=== PATIENT | female | born 1960 | race African-American/Black ===

== ENCOUNTER 2016-11-22 04:35 | Emergency (ER) | payer OTHER ==
[~2016-11-22] VITALS: Ht 180.3 cm; Wt 63.6 kg
[~2016-11-22 04:35] MED LIST: ABAC1TAB3 PO; DARU400T PO; IBUP100O11 PO; LITH150C PO; RITO100C PO
[2016-11-22] MEDS ORDERED: SUMA25TA9 PO (04:43)
[2016-11-22] MEDS ORDERED: KETOROLAC TROMETHAMINE 30 MG/ML VIAL IVP ONE (05:00)
[2016-11-22] MEDS ORDERED: SODIUM CHLORIDE 0.9% 1,000 ML IV ONE (05:00)
[2016-11-22] MEDS ORDERED: METOCLOPRAMIDE HCL 5 MG/ML 2 ML VIAL IVP ONE (05:00)
[2016-11-22 06:57] LABS: APPEARANCE,URINE CLEAR (CLEAR); GLUCOSE, URINE (UA) NEGATIVE (NEGATIVE); KETONES,URINE NEGATIVE (NEGATIVE); LEUKOCYTE ESTERASE ,URINE NEGATIVE (NEGATIVE); OCCULT BLOOD,URINE MODERATE (NEGATIVE); PH,URINE 6.5 (5.0-8.0); PROTEIN,URINE NEGATIVE (NEGATIVE)
[2016-11-22 06:58] LABS: ADD UA MICROSCOPIC YES
[2016-11-22 07:04] LABS: SQUAMOUS EPITHELIAL CELL,UR Few /LPF (None Seen); WBC,URINE 0-2 /HPF (0-5)
[2016-11-22 08:33] VITALS: BP 128/69
== END 2016-11-22 08:50 | disposition home or self-care (01) ==
LOC: EMS 04:36
DX: G43.909 Migraine, unspecified, not intractable, without status migrainosus (principal)
CPT/HCPCS: 70450; 80307; 81001; 96361; 96374; 96375; 99285; J1885; J2765; J7030

== ENCOUNTER 2017-02-10 03:31 | Emergency (ER) | payer OTHER ==
[~2017-02-10] VITALS: Ht 177.8 cm; Wt 59.1 kg
[~2017-02-10 03:31] MED LIST changes: -IBUP100O11 PO; -LITH150C PO; +SUMA25TA9 PO
[2017-02-10] MEDS ORDERED: PROMETHAZINE HCL 50 MG/ML VIAL IM ONE (05:15)
[2017-02-10] MEDS ORDERED: MORPHINE SULFATE 10 MG/ML SYRINGE IM ONE (05:15)
[2017-02-10] MEDS ORDERED: DEXAMETHASONE SOD PHOS 4 MG/ML 5 ML VIAL IM ONE (05:15)
[2017-02-10 06:41] VITALS: BP 135/88
== END 2017-02-10 07:26 | disposition home or self-care (01) ==
LOC: EMS 03:32
DX: G43.909 Migraine, unspecified, not intractable, without status migrainosus (principal); F20.9 Schizophrenia, unspecified
CPT/HCPCS: 96372; 99284; J1100; J2270; J2550

== ENCOUNTER 2017-03-22 13:13 | Emergency (ER) | payer OTHER ==
[~2017-03-22] VITALS: Ht 180.3 cm; Wt 56.8 kg
[2017-03-22] MEDS ORDERED: ONDANSETRON HCL 4 MG/2 ML VIAL IVP ONE (13:45)
[2017-03-22] MEDS ORDERED: KETOROLAC TROMETHAMINE 30 MG/ML VIAL IVP ONE (13:45)
[2017-03-22] MEDS ORDERED: SUMAtriptan SUCCINATE 6 MG/0.5 ML VIAL SQ ONE (13:45)
[2017-03-22 15:07] VITALS: BP 156/96
== END 2017-03-22 15:38 | disposition home or self-care (01) ==
LOC: EMS 13:14
DX: G43.909 Migraine, unspecified, not intractable, without status migrainosus (principal); F20.9 Schizophrenia, unspecified; F10.20 Alcohol dependence, uncomplicated
CPT/HCPCS: 96372; 96374; 96375; 99284; J1885; J2405; J3030

== ENCOUNTER 2017-03-23 06:13 | Emergency (ER) | payer OTHER ==
[~2017-03-23] VITALS: Ht 167.6 cm; Wt 61.0 kg
[2017-03-23] MEDS ORDERED: METOCLOPRAMIDE HCL 5 MG/ML 2 ML VIAL IVP ONE (07:15)
[2017-03-23] MEDS ORDERED: KETOROLAC TROMETHAMINE 30 MG/ML VIAL IVP ONE (07:15)
[2017-03-23] MEDS ORDERED: SODIUM CHLORIDE 0.9% 1,000 ML IV ONE (07:15)
[2017-03-23] MEDS ORDERED: SUMAtriptan SUCCINATE 6 MG/0.5 ML VIAL SQ ONE (07:15)
[2017-03-23 07:43] LABS: BASOPHILS # (AUTO) 0.03 K/uL (0.00-0.20); BASOPHILS % (AUTO) 0.8 % (0.0-2.0); EOSINOPHILS # (AUTO) 0.05 K/uL (0.00-0.70); EOSINOPHILS % (AUTO) 1.15 % (1.0-6.0); HEMATOCRIT 35.1 % (36-46); HEMOGLOBIN 11.6 g/dL (12.0-16.0); LYMPHOCYTES # (AUTO) 0.9 K/uL (1.0-4.8); LYMPHOCYTES % (AUTO) 21.5 % (22.0-44.0); MEAN CORPUSCULAR HEMOGLOBIN 28.1 pg (26.0-34.0); MEAN CORPUSCULAR VOLUME 85 fL (80-100); MONOCYTES # (AUTO) 0.5 K/uL (0.1-1.0); NEUTROPHILS # (AUTO) 2.7 K/uL (1.8-7.7); NEUTROPHILS % (AUTO) 64.6 % (40.0-70.0); PLATELET COUNT (AUTO) 185 K/uL (150-450); RED BLOOD CELL COUNT(AUTO) 4.13 MIL/uL (4.00-5.20); RED CELL DISTRIBUTION WIDTH 14.8 % (11.5-14.5); WHITE BLOOD COUNT (AUTO) 4.2 K/uL (4.5-11.0)
[2017-03-23 08:09] LABS: ANION GAP 6 mmol/L (8-16); CALCIUM, TOTAL 9.2 mg/dL (8.8-10.5); CARBON DIOXIDE 29 mmol/L (22-29); CHLORIDE 103 mmol/L (98-107); CREATININE 1.07 mg/dL (0.60-1.30); GLOMERULAR FILTR. RATE CALC > 60 mL/min (>60); POTASSIUM 3.1 mmol/L (3.5-5.1); SODIUM SERUM 138 mmol/L (136-145); UREA NITROGEN, BLOOD 25 mg/dL (7-18)
[2017-03-23 08:14] LABS: ALANINE AMINOTRANSFERASE 24 U/L (12-78); ALBUMIN 3.4 g/dL (3.4-5.0); ASPARTATE AMINOTRANSFERASE 27 U/L (15-37); BILIRUBIN,TOTAL 0.4 mg/dL (0.1-1.0); TOTAL PROTEIN, SERUM 8.5 g/dL (6.4-8.2)
[2017-03-23] MEDS ORDERED: POTASSIUM CHLORIDE 20 MEQ ER TABLET PO ONE (09:00)
[2017-03-23 10:47] LABS: APPEARANCE,URINE CLEAR (CLEAR); GLUCOSE, URINE (UA) NEGATIVE (NEGATIVE); KETONES,URINE NEGATIVE (NEGATIVE); LEUKOCYTE ESTERASE ,URINE NEGATIVE (NEGATIVE); PH,URINE 5.5 (5.0-8.0); PROTEIN,URINE NEGATIVE (NEGATIVE)
[2017-03-23 10:57] LABS: ADD UA MICROSCOPIC YES; OCCULT BLOOD,URINE SMALL (NEGATIVE)
[2017-03-23 10:58] LABS: RBC,URINE 0-2 /HPF (0-2); WBC,URINE None Seen /HPF (0-5)
[2017-03-23 12:05] VITALS: BP 130/81
== END 2017-03-23 12:21 | disposition home or self-care (01) ==
LOC: EMS 06:14
DX: G43.909 Migraine, unspecified, not intractable, without status migrainosus (principal); E86.0 Dehydration; F10.20 Alcohol dependence, uncomplicated; F15.10 Other stimulant abuse, uncomplicated
CPT/HCPCS: 36415; 80053; 80307; 81001; 85025; 96361; 96372; 96374; 96375; 99284; J1885; J2765; J3030; J7030

== ENCOUNTER 2017-03-24 07:49 | Emergency (ER) | payer OTHER ==
[~2017-03-24] VITALS: Ht 177.8 cm; Wt 47.7 kg
[2017-03-24] MEDS ORDERED: SUMAtriptan SUCCINATE 6 MG/0.5 ML VIAL SQ ONE (08:30)
[2017-03-24 09:30] VITALS: BP 128/82
== END 2017-03-24 09:31 | disposition home or self-care (01) ==
LOC: EMS 07:51
DX: G43.909 Migraine, unspecified, not intractable, without status migrainosus (principal)
CPT/HCPCS: 96372; 99283; J3030

== ENCOUNTER 2017-09-01 20:07 | Emergency (ER) | payer OTHER ==
[~2017-09-01] VITALS: Ht 172.7 cm; Wt 59.1 kg
[2017-09-02 01:43] LABS: HEMATOCRIT 37.7 % (36-46); HEMOGLOBIN 12.5 g/dL (12.0-16.0); MEAN CORPUSCULAR HEMOGLOBIN 27.3 pg (26.0-34.0); MEAN CORPUSCULAR VOLUME 83 fL (80-100); PLATELET COUNT (AUTO) 258 K/uL (150-450); RED BLOOD CELL COUNT(AUTO) 4.57 MIL/uL (4.00-5.20); RED CELL DISTRIBUTION WIDTH 17.1 % (11.5-14.5)
[2017-09-02] MEDS ORDERED: SODIUM CHLORIDE 0.9% 1,000 ML IV ONE (01:45)
[2017-09-02 01:53] LABS: ANION GAP 2 mmol/L (8-16); CALCIUM, TOTAL 9.5 mg/dL (8.8-10.5); CARBON DIOXIDE 28 mmol/L (22-29); CHLORIDE 103 mmol/L (98-107); CREATININE 0.88 mg/dL (0.60-1.30); GLOMERULAR FILTR. RATE CALC > 60 mL/min (>60); GLUCOSE,RANDOM 133 mg/dL (70-110); POTASSIUM 3.5 mmol/L (3.5-5.1); SODIUM SERUM 133 mmol/L (136-145); UREA NITROGEN, BLOOD 16 mg/dL (7-18)
[2017-09-02 01:54] LABS: INFLUENZA TYPE A NEGATIVE FOR TYPE A (NEGATIVE); INFLUENZA TYPE B NEGATIVE FOR TYPE B (NEGATIVE)
[2017-09-02 01:59] LABS: ALANINE AMINOTRANSFERASE 21 U/L (12-78); ALBUMIN 3.5 g/dL (3.4-5.0); ALKALINE PHOSPHATASE 88 U/L (46-116); ASPARTATE AMINOTRANSFERASE 25 U/L (15-37); BILIRUBIN,TOTAL 0.4 mg/dL (0.1-1.0); TOTAL PROTEIN, SERUM 9.9 g/dL (6.4-8.2)
[2017-09-02 02:02] LABS: LACTIC ACID 0.7 mmol/L (0.4-2.0)
[2017-09-02 02:19] LABS: LYMPHOCYTES % (MANUAL) 34 % (22-44); MONOCYTES % (MANUAL) 5 % (2-9); SEGMENTED NEUTROPHILS % 61 % (40-70)
[2017-09-02] MEDS ORDERED: DiphenhydrAMINE HCL 50 MG/ML VIAL IVP ONE (02:30)
[2017-09-02] MEDS ORDERED: METOCLOPRAMIDE HCL 5 MG/ML 2 ML VIAL IVP ONE (02:30)
[2017-09-02] MEDS ORDERED: KETOROLAC TROMETHAMINE 30 MG/ML VIAL IVP ONE (02:30)
[2017-09-02 04:45] VITALS: BP 148/98
== END 2017-09-02 05:32 | disposition home or self-care (01) ==
LOC: EMS 20:08
DX: G43.909 Migraine, unspecified, not intractable, without status migrainosus (principal); F19.90 Other psychoactive substance use, unspecified, uncomplicated
CPT/HCPCS: 36415; 70450; 80053; 83605; 85007; 85027; 87804; 96361; 96374; 96375; 99285; J1200; J1885; J2765; J7030

== ENCOUNTER 2018-02-25 19:19 | Emergency (ER) | payer OTHER ==
[~2018-02-25] VITALS: Ht 177.8 cm; Wt 79.5 kg
[2018-02-25 22:45] VITALS: BP 140/82
== END 2018-02-25 23:23 | disposition home or self-care (01) ==
LOC: EMS 19:20
DX: J44.0 Chronic obstructive pulmonary disease with (acute) lower respiratory infection (principal); J18.9 Pneumonia, unspecified organism; F15.10 Other stimulant abuse, uncomplicated; F20.9 Schizophrenia, unspecified; Z79.899 Other long term (current) drug therapy
CPT/HCPCS: 71046; 99284

== ENCOUNTER 2018-06-16 15:24 | Emergency (ER) | payer OTHER | END 2018-06-16 16:11 | disposition left against medical advice (07) | LOC: EMS 15:25 | DX: R53.1 Weakness (principal); F20.9 Schizophrenia, unspecified; F19.90 Other psychoactive substance use, unspecified, uncomplicated | CPT/HCPCS: 99283 ==

== ENCOUNTER 2018-12-30 12:29 | Emergency (ER) | payer OTHER ==
[~2018-12-30] VITALS: Ht 177.8 cm; Wt 63.0 kg
[2018-12-30] MEDS ORDERED: KETOROLAC TROMETHAMINE 30 MG/ML VIAL IVP ONE (13:15)
[2018-12-30] MEDS ORDERED: SODIUM CHLORIDE 0.9% 1,000 ML IV ONE (13:15)
[2018-12-30 13:23] LABS: BASOPHILS % (AUTO) 0.9 % (0.0-2.0); EOSINOPHILS % (AUTO) 0.3 % (1.0-6.0); HEMATOCRIT 44.1 % (36-46); HEMOGLOBIN 14.5 g/dL (12.0-16.0); LYMPHOCYTES # (AUTO) 0.8 K/uL (1.0-4.8); LYMPHOCYTES % (AUTO) 19.2 % (22.0-44.0); MEAN CORPUSCULAR HEMOGLOBIN 28.8 pg (26.0-34.0); MEAN CORPUSCULAR HGB CONC 32.9 G/dL (31.0-37.0); MEAN CORPUSCULAR VOLUME 88 fL (80-100); MONOCYTES # (AUTO) 0.5 K/uL (0.1-1.0); MONOCYTES % (AUTO) 12.5 % (2.0-9.0); NEUTROPHILS # (AUTO) 2.9 K/uL (1.8-7.7); NEUTROPHILS % (AUTO) 67.1 % (40.0-70.0); PLATELET COUNT (AUTO) 302 K/uL (150-450); RED BLOOD CELL COUNT(AUTO) 5.04 MIL/uL (4.00-5.20); RED CELL DISTRIBUTION WIDTH 13.5 % (11.5-14.5)
[2018-12-30 14:02] LABS: ANION GAP 14 mmol/L (8-16); CALCIUM, TOTAL 11.1 mg/dL (8.8-10.5); CARBON DIOXIDE 23 mmol/L (22-29); CHLORIDE 96 mmol/L (98-107); CREATININE 1.84 mg/dL (0.60-1.30); GLOMERULAR FILTR. RATE CALC 34 mL/min (>60); GLUCOSE,RANDOM 109 mg/dL (70-110); SODIUM SERUM 133 mmol/L (136-145); UREA NITROGEN, BLOOD 33 mg/dL (7-18)
[2018-12-30 14:21] LABS: ALANINE AMINOTRANSFERASE 20 U/L (12-78); ALBUMIN 4.6 g/dL (3.4-5.0); ALKALINE PHOSPHATASE 105 U/L (46-116); ASPARTATE AMINOTRANSFERASE 37 U/L (15-37); BILIRUBIN,TOTAL 0.8 mg/dL (0.1-1.0); PHOSPHORUS 5.6 mg/dL (2.5-4.9); TOTAL PROTEIN, SERUM 10.7 g/dL (6.4-8.2)
[2018-12-30 15:30] VITALS: BP 114/68
== END 2018-12-30 15:31 | disposition home or self-care (01) ==
LOC: EMS 12:29
DX: R25.2 Cramp and spasm (principal); N28.9 Disorder of kidney and ureter, unspecified; F15.90 Other stimulant use, unspecified, uncomplicated; F20.9 Schizophrenia, unspecified; Z79.899 Other long term (current) drug therapy
CPT/HCPCS: 36415; 80053; 83735; 84100; 85025; 96374; 99283; G0480; J1885; J7030

== ENCOUNTER 2019-01-06 13:13 | Emergency (ER) | payer OTHER ==
[~2019-01-06] VITALS: Ht 162.6 cm; Wt 59.1 kg
[2019-01-06 13:28] VITALS: BP 157/95
[2019-01-06] MEDS ORDERED: [UNRECOGNIZED DRUG - CODE] PO (13:36)
[2019-01-06] MEDS ORDERED: ABAC1TAB3 (13:36)
[2019-01-06] MEDS ORDERED: DARU100O PO (13:36)
[2019-01-06] MEDS ORDERED: IBUPROFEN 600 MG TABLET PO ONE (13:45)
== END 2019-01-06 14:15 | disposition home or self-care (01) ==
LOC: EMS 13:14
DX: H66.93 Otitis media, unspecified, bilateral (principal); F20.9 Schizophrenia, unspecified; R03.0 Elevated blood-pressure reading, without diagnosis of hypertension; Z79.899 Other long term (current) drug therapy

== ENCOUNTER 2019-02-16 22:54 | Emergency (ER) | payer OTHER ==
[~2019-02-16] VITALS: Ht 177.8 cm; Wt 70.0 kg
[~2019-02-16 22:54] MED LIST changes: +ABAC1TAB3; -ABAC1TAB3 PO; +DARU100O PO; -DARU400T PO; -RITO100C PO; -SUMA25TA9 PO; +[UNRECOGNIZED DRUG - CODE] PO
[2019-02-16] MEDS ORDERED: SUMA25TA9 PO (23:16)
[2019-02-16] MEDS ORDERED: ALBU8HFA IH (23:16)
[2019-02-16] MEDS ORDERED: HYD25 PO (23:16)
[2019-02-16] MEDS ORDERED: TRAM50TA4 PO (23:16)
[2019-02-16] MEDS ORDERED: IBUP-2071 PO (23:16)
[2019-02-17] MEDS ORDERED: CefTRIAXone SODIUM 1 GM/VIAL IM ONE (02:45)
[2019-02-17] MEDS ORDERED: ACETAMINOPHEN 500 MG TABLET PO ONE (02:45)
[2019-02-17] MEDS ORDERED: AZITHROMYCIN 250 MG TABLET PO ONE (02:45)
[2019-02-17] MEDS ORDERED: BUPIVACAINE HCL/PF 0.25% 10 ML VIAL INJ ONE (02:45)
[2019-02-17] MEDS ORDERED: BUPIVACAINE HCL/PF 0.25% 30 ML VIAL INJ ONE (02:45)
[2019-02-17] MEDS ORDERED: ONDANSETRON HCL 4 MG/2 ML VIAL IVP ONE (03:30)
[2019-02-17] MEDS ORDERED: MORPHINE SULFATE 2 MG/ML SYRINGE IVP ONE (03:30)
[2019-02-17 05:30] VITALS: BP 119/70
== END 2019-02-17 05:46 | disposition home or self-care (01) ==
LOC: EMS 22:54
DX: N75.1 Abscess of Bartholin's gland (principal); F15.10 Other stimulant abuse, uncomplicated; Z79.899 Other long term (current) drug therapy
CPT/HCPCS: 56420; 96372; 96374; 96375; 99283; J0696; J2270; J2405; J3490

== ENCOUNTER 2019-06-25 07:21 | Emergency (ER) | payer OTHER ==
[~2019-06-25] VITALS: Ht 165.1 cm; Wt 70.5 kg
[~2019-06-25 07:21] MED LIST changes: +ALBU8HFA IH; +HYD25 PO; +IBUP-2071 PO; +SUMA25TA9 PO; +TRAM50TA4 PO
[2019-06-25 09:46] VITALS: BP 131/83
== END 2019-06-25 09:48 | disposition home or self-care (01) ==
LOC: EMS 07:23
DX: S00.83XA Contusion of other part of head, initial encounter (principal); F10.20 Alcohol dependence, uncomplicated; F20.9 Schizophrenia, unspecified; F15.90 Other stimulant use, unspecified, uncomplicated; Z79.899 Other long term (current) drug therapy; W18.39XA Other fall on same level, initial encounter; Y93.89 Activity, other specified; Y92.89 Other specified places as the place of occurrence of the external cause; Y99.8 Other external cause status
CPT/HCPCS: 70450

== ENCOUNTER 2019-07-14 04:55 | Emergency (ER) | payer OTHER ==
[~2019-07-14] VITALS: Ht 177.8 cm; Wt 63.6 kg
[2019-07-14] MEDS ORDERED: ACETAMINOPHEN 500 MG TABLET PO ONE (05:30)
[2019-07-14 06:32] VITALS: BP 130/84
== END 2019-07-14 06:30 | disposition home or self-care (01) ==
LOC: EMS 04:57
DX: S80.02XA Contusion of left knee, initial encounter (principal); F20.9 Schizophrenia, unspecified; F19.90 Other psychoactive substance use, unspecified, uncomplicated; W19.XXXA Unspecified fall, initial encounter; Y93.89 Activity, other specified; Y92.89 Other specified places as the place of occurrence of the external cause; Y99.8 Other external cause status

== ENCOUNTER 2020-05-24 03:38 | Emergency (ER) | payer OTHER ==
[~2020-05-24] VITALS: Ht 180.3 cm; Wt 61.4 kg
[2020-05-24 04:24] LABS: BASOPHILS % (AUTO) 1.1 % (0.0-2.0); EOSINOPHILS % (AUTO) 1.9 % (1.0-6.0); HEMATOCRIT 32.5 % (36-46); HEMOGLOBIN 10.5 g/dL (12.0-16.0); LYMPHOCYTES # (AUTO) 1.2 K/uL (1.0-4.8); LYMPHOCYTES % (AUTO) 37.3 % (22.0-44.0); MEAN CORPUSCULAR HEMOGLOBIN 26.9 pg (26.0-34.0); MEAN CORPUSCULAR HGB CONC 32.3 G/dL (31.0-37.0); MEAN CORPUSCULAR VOLUME 84 fL (80-100); MONOCYTES # (AUTO) 0.4 K/uL (0.1-1.0); MONOCYTES % (AUTO) 13.1 % (2.0-9.0); NEUTROPHILS # (AUTO) 1.5 K/uL (1.8-7.7); NEUTROPHILS % (AUTO) 46.6 % (40.0-70.0); PLATELET COUNT (AUTO) 221 K/uL (150-450); RED CELL DISTRIBUTION WIDTH 16.1 % (11.5-14.5)
[2020-05-24 04:41] LABS: ALANINE AMINOTRANSFERASE 23 U/L (12-78); ALBUMIN 3.2 g/dL (3.4-5.0); ALKALINE PHOSPHATASE 70 U/L (46-116); ANION GAP 6 mmol/L (8-16); ASPARTATE AMINOTRANSFERASE 27 U/L (15-37); BILIRUBIN,TOTAL 0.3 mg/dL (0.1-1.0); CALCIUM, TOTAL 9.1 mg/dL (8.8-10.5); CARBON DIOXIDE 29 mmol/L (22-29); CHLORIDE 101 mmol/L (98-107); CREATININE 0.87 mg/dL (0.60-1.30); GLOMERULAR FILTR. RATE CALC > 60 mL/min (>60); GLUCOSE,RANDOM 102 mg/dL (70-110); SODIUM SERUM 136 mmol/L (136-145); TOTAL PROTEIN, SERUM 8.2 g/dL (6.4-8.2); UREA NITROGEN, BLOOD 13 mg/dL (7-18)
[2020-05-24] MEDS ORDERED: ACETAMINOPHEN 325 MG TABLET PO ONE (05:15)
[2020-05-24] MEDS ORDERED: POTASSIUM CHLORIDE 20 MEQ ER TABLET PO ONE (05:15)
[2020-05-24 05:29] VITALS: BP 136/89
[2020-05-24] MEDS ORDERED: ASPIRIN/ACETAMINOPHEN/CAFFEINE 250-250-65 MG TABLET PO ONE (06:00)
== END 2020-05-24 06:38 | disposition home or self-care (01) ==
LOC: EMS 03:39
DX: E87.6 Hypokalemia (principal); Z79.899 Other long term (current) drug therapy
CPT/HCPCS: 70450